=== PATIENT | female | born 1995 | race Two or more races ===

== ENCOUNTER 2023-02-01 12:15 | Emergency (ER) | payer OTHER ==
[~2023-02-01] VITALS: Ht 172.7 cm; Wt 64.4 kg
[2023-02-01] MEDS ORDERED: AMOX-CLAV 875-1 EAC1 PO (15:03)
== END 2023-02-01 16:01 | disposition home or self-care (01) ==
LOC: ER 12:16
DX: J02.9 Acute pharyngitis, unspecified (principal)